=== PATIENT | male | born 1945 | race Caucasian/White ===

== ENCOUNTER 2021-04-13 16:49 | Inpatient (IN) | payer OTHER, BC ==
[2021-04-13] MEDS ORDERED: SODIUM CHLORIDE 2,368 ML IV ONE (17:15)
[2021-04-13] MEDS ORDERED: ACETAMINOPHEN 1000 MG/100 ML VIAL (NON FORMULARY) IVPB ONE (17:16)
[2021-04-13] MEDS ORDERED: ACETAMINOPHEN INJECTION 100 ML IVPB ONE (17:25)
[2021-04-13] MEDS ORDERED: CEFEPIME HCL/D5W 1 GM/50 ML BAG IVPB ONE ×2 (18:00→20:53)
[2021-04-13] MEDS ORDERED: VANCOMYCIN 1 GM in D5W (PRE-DOCKED) 1,000 MG/250 ML IVPB ONE (18:00)
[2021-04-13 18:18] LABS: BASO % 0.2 % (0-2.0); HEMATOCRIT 43.4 % (35.4-49); HEMOGLOBIN 14.4 GM/dL (11.7-16.9); LYMPH % 2.9 % (8-40); MCH 29.9 pg (25.7-33.7); MCHC 33.2 g/dl (32.0-35.9); MEAN PLT VOLUME 10.7 fl (7.5-11.1); MONO % 3.1 % (3.8-10.2); NEUT % 93.8 % (42.8-82.8); PLATELET COUNT 140 10^3/uL (134-434); RBC 4.82 M/mm3 (4.00-5.60); RDW 14.9 % (11.9-15.9)
[2021-04-13 18:27] LABS: INR 1.34 (0.83-1.09); PROTHROMBIN TIME (PATIENT) 16.4 SEC (9.7-13.0)
[2021-04-13 18:30] LABS: ACTIVATED PTT 28.8 SECONDS (25.2-36.5)
[2021-04-13] MEDS ORDERED: VANCOMYCIN 1 GRAM (PRE-DOCKED) 1,000 MG/250 ML BAG IVPB ONE (18:38)
[2021-04-13 18:57] LABS: CALCIUM 8.2 mg/dL (8.5-10.1)
[2021-04-13 18:58] LABS: ALBUMIN 3.2 g/dl (3.4-5.0); BLOOD UREA NITROGEN 29.6 mg/dL (7-18)
[2021-04-13 19:01] LABS: CREATININE 2.1 mg/dL (0.55-1.3)
[2021-04-13 19:03] LABS: BILIRUBIN,TOTAL 1.3 mg/dL (0.2-1); TOT PROT 6.1 g/dl (6.4-8.2)
[2021-04-13 19:41] LABS: LACTIC ACID 3.6 mmol/L (0.4-2.0)
[2021-04-13 19:53] LABS: URINE APPEARANCE Clear; URINE BILIRUBIN 1+ (NEGATIVE); URINE COLOR Yellow; URINE GLUCOSE (UA) Negative (NEGATIVE); URINE KETONE Trace (NEGATIVE); URINE LEUK ESTERASE Negative (NEGATIVE); URINE NITRITE Positive (NEGATIVE); URINE PROTEIN 2+ (NEGATIVE); URINE UROBILINOGEN 0.2 mg/dL (0.2-1.0)
[2021-04-13 19:54] LABS: ANISOCYTOSIS 1+; MACROCYTOSIS 0; PLATELET ESTIMATE DECREASED
[2021-04-13 21:55] LABS: EPI CELLS 21.7 /uL (0-25.1); URINE RBC 27.1 /uL (0-23.9); URINE WBC 12.1 /uL (0-25.8)
[2021-04-13 21:56] LABS: URINE BACTERIA 2.7 /uL (0-1359)
[2021-04-14] MEDS ORDERED: DEXTROSE 50%-WATER - 25 GM/50 ML VIAL IVPUSH ONE ×2 (00:09→04:40)
[2021-04-14] MEDS ORDERED: CEFEPIME HCL/D5W 1 GM/50 ML BAG IVPB ONE (00:31)
[2021-04-14] MEDS ORDERED: SODIUM CHLORIDE 1,000 ML IV STA ×2 (00:44→09:53)
[2021-04-14] MEDS ORDERED: DEXTROSE 5%-NORMAL SALINE 1,000 ML IV ONE (00:55)
[2021-04-14] MEDS ORDERED: NOREPINEPHRINE BITARTRATE 8,000 MCG/500 ML BAG IVPB SCH ×2 (01:30→04:59)
[2021-04-14 01:58] LABS: LACTIC ACID 6.2 mmol/L (0.4-2.0)
[2021-04-14] MEDS ORDERED: SODIUM CHLORIDE 1,000 ML IV SCH ×2 (04:15)
[2021-04-14] MEDS ORDERED: VASOPRESSIN 20 UNITS/ML VIAL IV ONE (04:15)
[2021-04-14] MEDS ORDERED: VASOPRESSIN 40 UNITS in SODIUM CHLORIDE 98 ML IVPB SCH (04:15)
[2021-04-14] MEDS ORDERED: NOREPINEPHRINE BITARTRATE 8,000 MCG in DEXTROSE 5%-WATER - 492 ML IV SCH (04:40)
[2021-04-14] MEDS ORDERED: DEXTROSE 5% IVPB SCH (04:40)
[2021-04-14] MEDS ORDERED: CEFEPIME IVPB SCH (04:40)
[2021-04-14] MEDS ORDERED: WATER IVPB SCH (04:40)
[2021-04-14] MEDS ORDERED: PHENYLEPHRINE NS PREMIX 50,000 MCG/500 ML BAG CVP SCH (04:45)
[2021-04-14 05:42] VITALS: BMI 29.2
[2021-04-14] MEDS ORDERED: CEFEPIME 2 GM in DEXTROSE 5%-WATER 100 ML IVPB SCH (06:00)
[2021-04-14] MEDS ORDERED: HEPARIN NA (PORCINE) 5,000 UNITS/ML 1ML VIAL SQ SCH ×2 (06:00)
[2021-04-14] MEDS: INSULIN SLIDING SCALE (NOVOLOG) 1 VIAL SQ SCH ×2 (06:37→11:00)
[2021-04-14] MEDS ORDERED: INSULIN SLIDING SCALE (NOVOLOG) 1 VIAL SQ SCH (07:00)
[2021-04-14 07:15] LABS: BASO % 0.2 % (0-2.0); EOS % 0.1 % (0-4.5); HEMATOCRIT 40.3 % (35.4-49); LYMPH % 6.1 % (8-40); MCHC 32.2 g/dl (32.0-35.9); MEAN PLT VOLUME 11.5 fl (7.5-11.1); MONO % 3.5 % (3.8-10.2); NEUT % 90.1 % (42.8-82.8); PLATELET COUNT 94 10^3/uL (134-434); RBC 4.34 M/mm3 (4.00-5.60); RDW 15.1 % (11.9-15.9); WHITE BLOOD COUNT 16.5 K/mm3 (4.0-10.0)
[2021-04-14 07:29] LABS: CALCIUM 7.1 mg/dL (8.5-10.1)
[2021-04-14 07:30] LABS: BLOOD UREA NITROGEN 38.6 mg/dL (7-18); MAGNESIUM 1.7 mg/dL (1.8-2.4)
[2021-04-14 07:33] LABS: CREATININE 3.3 mg/dL (0.55-1.3); PHOSPHOROUS 5.4 mg/dL (2.5-4.9)
[2021-04-14 07:34] LABS: BILIRUBIN,TOTAL 1.3 mg/dL (0.2-1); TOT PROT 4.9 g/dl (6.4-8.2)
[2021-04-14] MEDS ORDERED: MIDAZOLAM HCL 2 MG/2 ML SINGLE DOSE VIAL IVPUSH ONE (08:10)
[2021-04-14] MEDS ORDERED: ROCURONIUM BROMIDE 50 MG/5 ML VIAL IV ONE (08:11)
[2021-04-14] MEDS ORDERED: RAPID SEQUENCE INTUBATION KIT NR ONE ×2 (08:12→08:29)
[2021-04-14] MEDS ORDERED: PROPOFOL 1,000,000 MCG/100 ML VIAL IVPB SCH (08:15)
[2021-04-14] MEDS ORDERED: HYDROCORTISONE SOD SUCCINATE 100 MG/2 ML VIAL IVPB SCH (08:15)
[2021-04-14] MEDS ORDERED: PROPOFOL 1,000,000 MCG/100 ML VIAL ONE (08:24)
[2021-04-14] MEDS ORDERED: MIDAZOLAM HCL 2 MG/2 ML SINGLE DOSE VIAL ONE (08:25)
[2021-04-14 08:48] LABS: ALBUMIN 2.5 g/dl (3.4-5.0)
[2021-04-14 08:57] LABS: URINE APPEARANCE Clear; URINE BILIRUBIN 1+ (NEGATIVE); URINE COLOR Yellow; URINE GLUCOSE (UA) Negative (NEGATIVE); URINE KETONE Trace (NEGATIVE); URINE LEUK ESTERASE Negative (NEGATIVE); URINE NITRITE Positive (NEGATIVE); URINE PROTEIN 2+ (NEGATIVE); URINE UROBILINOGEN 0.2 mg/dL (0.2-1.0)
[2021-04-14 09:02] LABS: HYALINE CASTS 8.13 /uL (0-3.1); URINE BACTERIA 1.8 /uL (0-1359); URINE RBC 34.4 /uL (0-23.9); URINE WBC 29.7 /uL (0-25.8)
[2021-04-14] MEDS ORDERED: AMIODARONE IN DEXTROSE,ISO-OSM 150 MG/100 ML BAG IVPB ONE (09:27)
[2021-04-14] MEDS ORDERED: AMIODARONE IN DEXTROSE,ISO-OSM 360 MG/200 ML BAG ONE (09:28)
[2021-04-14] MEDS ORDERED: AMIODARONE HCL INJECTION 450 MG in DEXTROSE 5%-WATER - 241 ML IVPB ONE (09:28)
[2021-04-14] MEDS ORDERED: AMIODARONE IN DEXTROSE,ISO-OSM 150 MG/100 ML BAG ONE (09:29)
[2021-04-14] MEDS ORDERED: AMIODARONE IN DEXTROSE,ISO-OSM 360 MG/200 ML BAG IVPB SCH ×2 (09:45→16:00)
[2021-04-14 09:56] LABS: PLATELET ESTIMATE DECREASED
[2021-04-14] MEDS ORDERED: AMIODARONE IN DEXTROSE,ISO-OSM 360 MG/200 ML BAG IVPB ONE ×2 (10:00→10:21)
[2021-04-14] MEDS ORDERED: MEROPENEM 1 GM in DEXTROSE 5%-WATER 100 ML IVPB SCH (10:00)
[2021-04-14] MEDS ORDERED: MUPIROCIN 2% TOPICAL OINTMENT FOR DECOLONIZATION NS SCH (10:00)
[2021-04-14] MEDS ORDERED: VANCOMYCIN 1 GM in D5W (PRE-DOCKED) 1,000 MG/250 ML IVPB SCH (10:00)
[2021-04-14] MEDS ORDERED: TRIPLE LUMEN FLUSH 4 ML ML IVPUSH PRN (10:54)
[2021-04-14 11:19] LABS: ARTERIAL BLD GAS O2 SATURATION 99.4 mmHg (95-98); ARTERIAL BLOOD GAS BASE EXCESS -20.8 mmol/L (-2-2); ARTERIAL BLOOD GAS PO2 303.4 mmHg (80-100)
[2021-04-14] MEDS ORDERED: DEXTROSE 5%-WATER 100 ML IVPB ONE (11:23)
[2021-04-14] MEDS ORDERED: MEROPENEM 1 GM VIAL (RESTRICTED TO ID) IVPB ONE (11:23)
[2021-04-14 11:24] LABS: VENT MODE A/C; VENT RATE 24
[2021-04-14 11:28] LABS: ARTERIAL BLOOD GAS pH 7.038 (7.350-7.450)
[2021-04-14 12:01] LABS: LACTIC ACID 9.9 mmol/L (0.4-2.0)
[2021-04-14 14:25] VITALS: BP 73/55; PULSE 84; TEMP 97.6
[2021-04-14] MEDS ORDERED: VANCOMYCIN 1 GRAM (PRE-DOCKED) 1,000 MG/250 ML BAG IVPB ONE ×2 (18:00)
[2021-04-14] MEDS ORDERED: CHLORHEXIDINE GLUCONATE 4% CLEANSER FOR DECOLONIZATION TP SCH (22:00)
== END 2021-04-14 15:35 | disposition expired | DRG 871 ==
LOC: JER 16:49 → JERBED 20:25 → JICU 04-14 04:13
PROVIDERS: ADMIT Internal Medicine; ATTEND Internal Medicine
PROC: 5A1935Z Respiratory Ventilation, Less than 24 Consecutive Hours (ICD-10-PCS; principal; 2021-04-14)
PROC: 0BH17EZ Insertion of Endotracheal Airway into Trachea, Via Natural or Artificial Opening (ICD-10-PCS; 2021-04-14)
PROC: 03HY32Z Insertion of Monitoring Device into Upper Artery, Percutaneous Approach (ICD-10-PCS; 2021-04-14)
PROC: 4A133B1 Monitoring of Arterial Pressure, Peripheral, Percutaneous Approach (ICD-10-PCS; 2021-04-14)
PROC: 4A133J1 Monitoring of Arterial Pulse, Peripheral, Percutaneous Approach (ICD-10-PCS; 2021-04-14)
PROC: 05H633Z Insertion of Infusion Device into Left Subclavian Vein, Percutaneous Approach (ICD-10-PCS; 2021-04-14)
DX: A41.50 Gram-negative sepsis, unspecified (principal); R65.21 Severe sepsis with septic shock; J18.9 Pneumonia, unspecified organism; J96.01 Acute respiratory failure with hypoxia; N17.9 Acute kidney failure, unspecified; C85.10 Unspecified B-cell lymphoma, unspecified site; E87.2 Acidosis; I10 Essential (primary) hypertension; E11.9 Type 2 diabetes mellitus without complications; R74.01 Elevation of levels of liver transaminase levels; D72.829 Elevated white blood cell count, unspecified; I95.9 Hypotension, unspecified
CPT/HCPCS: 31500; 36415; 36600; 71045-TC-FY; 71250-TC; 74176-TC; 80053; 81003; 82803; 82962; 83036; 83605; 83735; 84100; 84484; 85025; 85610; 85730; 87040; 87086; 87186; 87804; 87899; 93005; 93010; 94002; 99291; C9803; J0131; J0282; J1644; U0003; U0005